=== PATIENT | female | born 1960 | race African-American/Black ===

== ENCOUNTER → 2017-04-03 | Outpatient (CLI) | payer MEDICARE, OTHER ==
[~2017-04-03] MED LIST: ACIPHEX20 MG PO; ALBUTEROL17 GM INH; ALLERGY INJECTIONS INJ; ALLERGY SHOT; ALPHAGAN EYE OU; AMBIEN PO; AUGMENTIN PO; AZOPT 1% OU; BACLOFEN; BACTRIM DS TABL1 TA2 PO; BACTRIM DS TABL1 TAB PO; BONIVA150 MG PO; BP MED; BUSPIRONE HCL7.5 MG PO; BYETTA10 MCG/0.0 INJ; BYETTA5 MCG/0.02 SQ; CARAFATE1 G PO; CIPRO HC10 ML PO; CIPRO PO; CLARITIN D; CLARITIN10 MG PO; COLACE PO; DEPO; DEXILANT60 MG PO; DIOVAN HCT 160/1 TAB PO; DIOVAN PO; DOXYCYCLINE HY100 M3 PO; DUREZOL 0.05% OU; ELMIRON; ELMIRON100 MG; FISH OIL 1,0001 CAP PO; FLAGYL PO; FLAX SEED OIL1000 M1 PO; FUROSEMIDE40 MG PO; GLUCOPHAGE XR500 MG PO; KEFLEX; LEVAQUIN250 MG PO; LEVAQUIN750 M1; LEVSIN PO; LIDOCAINE; LOSARTAN POTASS25 MG PO; MACROBID100 MG PO; METAMUCIL1 PKT PO; METFORMIN HCL500 M1 PO; MIRALAX17 G1 PO; MIRALAX17 GM PO; MOBIC PO; MOTRIN600 M2 PO; NASAL SPRAY; NEXIUM; NEXIUM PO; OXYCODONE-ACET1 EAC1 PO; OXYTROL; PERCOCET; PERCOCET5/325 PO; PHENERGAN DM1 ML; PHENERGAN25 M1 PO; PHENERGAN25 MG PO; PRAVASTATIN SOD20 MG PO; PRED FORTE1 ML; PREDNISONE PO; PREDNISONE10 MG/DOSE PO; PREMARIN VAG CR45 GM MC; PRILOSEC PO; PYRIDIUM PO; SAVELLA PO; SPIRONOLAC1 TAB 25/2; SPIRONOLACTONE-1 TAB PO; SPIRONOLACTONE/1 TAB PO; SYNTHROID PO; TESSALON200 MG PO; ULTRAM PO; VICODIN 5/1 TAB 5/50 PO; VICTOZA0.6 MG/0.1; VITAMIN D50000 UNIT PO; ZANTAC150 M1 PO; ZANTAC150 MG PO; ZELNORM PO; ZOFRANODT PO; ZYRTEC10 M2 PO; [UNRECOGNIZED DRUG - OTHER]
--- NOTE | ~2017-04-03 | CR63 ---
[facility]. [facility] A Service of [facility] & [facility] RADIOLOGY TEXT RESULTS PATIENT: ABDULKADIR DIAZ LOCATION: [facility] : 62 UNIT #: [id number] AGE: [address]: Betsy Matos MAINTENANCE SUPERVISOR ELECTRICAL SEX: F ORDER DR: [id number] [place] [id number] O MR#: [id number] Acc #: [id number] NAME: ABDULKADIR DIAZ : 1960 SEX: F STUDY DATE/TIME: 04/03/2017 9:17 UNIT: SRAD ROOM: STUDY DESCRIPTION: CR Chest 2 View Attending Physician: Betsy Matos A.P.R.N. Referring Physician: Betsy Matos A.P.R.N. Ordering Physician: Betsy Matos A.P.R.N. Primary Care Physician: Everton Melendez M.D. MEDICAL IMAGING REPORT This report is preliminary unless electronic signature is present. EXAM 2 view chest 04/03/2017 INDICATIONS Cough since last Saturday. PROCEDURE Frontal and lateral views of the chest COMPARISON 10/24/2016 FINDINGS Heart size within normal limits. Linear scarring in the right lung base. No dense consolidation. No pleural fluid or visible pneumothorax. There is a Lap-Band in place. IMPRESSION Linear atelectasis or scarring at the right lung base. No dense consolidation. Dictated by... Kvng Graham M.D. THIS IS AN ELECTRONICALLY VERIFIED REPORT Kvng Graham M.D. at 04/04/2017 7:24 AM Clive TD: 04/03/2017 17:35 JOB #: [id number] MEDICAL IMAGING REPORT Page 1 of 1
== END | disposition home or self-care (01) ==
LOC: SRAD 09:10
DX: R05 Cough (principal); J98.4 Other disorders of lung
CPT/HCPCS: 71020

== ENCOUNTER 2017-04-04 15:43 | Emergency (ER) | payer MEDICARE, OTHER ==
[~2017-04-04 15:43] MED LIST changes: -DOXYCYCLINE HY100 M3 PO; -OXYCODONE-ACET1 EAC1 PO; -SPIRONOLAC1 TAB 25/2
[2017-04-04 16:01] LABS: URINE SOURCE CLEAN CATCH
[2017-04-04 16:04] LABS: BASOPHIL# 0.1 X10e3 (0-0.3); BASOPHIL% 0.6 % (0-2.5); EOSINOPHIL# 0.1 X10e3 (0-0.7); EOSINOPHIL% 0.9 % (0.0-7.0); HEMOGLOBIN 12.3 gm/dL (12.0-16.0); LYMPHOCYTE# 3.2 X10e3 (1.0-3.5); LYMPHOCYTE% 23.5 % (17.0-45.0); MEAN CELL VOLUME 81.4 FL (83-96); MEAN CORPUSCULAR HEMOGLOBIN 25.7 PG (28-34); MEAN CORPUSCULAR HGB CONC 31.5 g/dL (30-36); MEAN PLATELET VOLUME 8.8 FL (6.5-11.5); MONOCYTE# 1.3 X10e3 (0-1.0); MONOCYTE% 9.7 % (3.0-12.0); NEUTROPHIL% 65.3 % (40-75); PLATELET COUNT 454 X10e3 (140-420); RED BLOOD COUNT 4.79 X10e (3.90-5.30); RED CELL DISTRIBUTION WIDTH 12.9 % (11.0-15.5); WHITE BLOOD COUNT 13.7 X10e3 (4.0-10.5)
[2017-04-04 16:08] LABS: DIFF IND NO
[2017-04-04 16:19] LABS: MICRO INDICATED? YES; URINE APPEARANCE CLEAR; URINE BILIRUBIN NEG (NEG); URINE BLOOD NEG (NEG); URINE COLOR YELLOW; URINE GLUCOSE NEG (NORM); URINE KETONE NEG (NEG); URINE LEUKOCYTE ESTERASE NEG (NEG); URINE NITRATE NEG (NEG); URINE PH 7.5 (5-8); URINE PROTEIN TRACE (NEG); URINE SPECIFIC GRAVITY 1.015 (1.003-1.035)
[2017-04-04 16:28] LABS: ALBUMIN SERUM 4.2 g/dL (3.5-5.0); BILIRUBIN, DIRECT 0.1 mg/dL (0.0-0.2); BILIRUBIN,INDIRECT 0.4 mg/dL (0.0-0.9); BILIRUBIN,TOTAL 0.5 mg/dL (0.2-2.0); BUN/CREATININE RATIO 21.66; CALCIUM SERUM 9.5 mg/dL (8.4-10.2); CREATININE SERUM 0.6 mg/dL (0.6-1.4); GLOM FILT RATE Estimated 118.9 mL/min (>60); POTASSIUM 3.3 mmol/L (3.5-5.1); PROTEIN TOTAL SERUM 8.3 g/dL (6.0-8.3)
[2017-04-04 16:45] LABS: CULTURE INDICATED? YES; URINE BACTERIA 1+ (NEG); URINE SQUAMOUS EPITHELIAL CELL MANY /[HPF]
[2017-04-23] MEDS ORDERED: OXYCODONE-ACET1 EAC1 PO (08:44)
[2017-04-23] MEDS ORDERED: SPIRONOLAC1 TAB 25/2 (08:45)
[2017-04-23] MEDS ORDERED: DOXYCYCLINE HY100 M3 PO (08:47)
== END 2017-04-04 17:34 | disposition home or self-care (01) ==
LOC: SED 15:43
PROVIDERS: Emergency Medicine
DX: N39.0 Urinary tract infection, site not specified (principal); R05 Cough; Z88.0 Allergy status to penicillin; Z88.5 Allergy status to narcotic agent; Z88.6 Allergy status to analgesic agent; Z91.040 Latex allergy status; Z79.899 Other long term (current) drug therapy; Z88.8 Allergy status to other drugs, medicaments and biological substances
CPT/HCPCS: 36415; 80048; 80076; 81003; 83690; 85025; 87086; 96361; 96374; 99284; J2405

== ENCOUNTER → 2017-04-24 | Day surgery (SDC) | payer MEDICARE, OTHER ==
[~2017-04-24] MED LIST changes: +DOXYCYCLINE HY100 M3 PO; +OXYCODONE-ACET1 EAC1 PO; +SPIRONOLAC1 TAB 25/2
--- NOTE | ~2017-04-24 | OR ---
Unit #: [id number] #: [id number] Patient: ABDULKADIR DIAZ [id number] [address] [address] [id number] O MR#: [id number] NAME: ABDULKADIR DIAZ ROOM: Date of Procedure: 04/24/2017 Admission Date: 04/24/2017 Surgeon: Tomy Youngblood M.D. : 1960 Attending Physician: Tomy Youngblood M.D. Primary Care Physician: Everton Melendez M.D. OPERATIVE REPORT PROCEDURE PERFORMED Esophagogastroduodenoscopy with biopsy. INDICATIONS FOR PROCEDURE The patient with persistent epigastric pain, bloating, nausea, vomiting, undergoing evaluation with upper endoscopy. She has history of lap-band placement in 2010. MEDICATIONS Monitored anesthesia. POSTOPERATIVE FINDINGS 1. Lap-band in place. 2. Mild gastritis. Biopsies were taken. 3. Normal duodenum and distal duodenum. PLAN The patient is advised to get fluid taken off the lap-band to see if that will improve her symptoms. We will follow up on the pathology report. Treat for H pylori if positive. DESCRIPTION OF PROCEDURE The patient was explained of the procedure, risks, and benefits along with the risks and benefits of anesthesia. She was brought to the endoscopy room. Propofol anesthesia was given. Bite block was placed. The scope was passed down the mouth into esophagus, stomach, duodenum, and distal duodenum. Findings as described. Biopsies were taken. Gently, the scope was pulled out. She tolerated it well. Dictated by... Aye Romero/grecia TD: 04/24/2017 22:37 JOB #: [id number] Unit #: [id number] #: [id number] Patient: ABDULKADIR DIAZ OPERATIVE REPORT Page 1 of 1 X Tomy Youngblood MD X PROCEDURE OPERATIVE NOTE
== END | disposition home or self-care (01) ==
LOC: COPS 07:18
DX: K29.50 Unspecified chronic gastritis without bleeding (principal); E11.9 Type 2 diabetes mellitus without complications; I10 Essential (primary) hypertension; J45.909 Unspecified asthma, uncomplicated; E03.9 Hypothyroidism, unspecified; M19.90 Unspecified osteoarthritis, unspecified site; K21.9 Gastro-esophageal reflux disease without esophagitis; F32.9 Major depressive disorder, single episode, unspecified; F41.9 Anxiety disorder, unspecified; Z88.0 Allergy status to penicillin; Z88.1 Allergy status to other antibiotic agents; Z88.6 Allergy status to analgesic agent; Z88.5 Allergy status to narcotic agent; Z88.8 Allergy status to other drugs, medicaments and biological substances; Z79.84 Long term (current) use of oral hypoglycemic drugs; Z79.2 Long term (current) use of antibiotics; Z79.899 Other long term (current) drug therapy; Z98.890 Other specified postprocedural states; Z90.710 Acquired absence of both cervix and uterus
CPT/HCPCS: 88305; 88312